=== PATIENT | male | born 1985 | race Caucasian/White ===

== ENCOUNTER → 2020-05-24 10:51 | Outpatient (BNVA) | payer BC, SELFPAY | PROVIDERS: Family Provider Nurse Practitioner; PCP Nurse Practitioner Family; Visit Provider Nurse Practitioner Family | DX: Z20.828 Contact with and (suspected) exposure to other viral communicable diseases (principal) | CPT/HCPCS: 87426 ==

== ENCOUNTER → 2020-06-28 17:16 | Outpatient (BNVA) | payer BC, SELFPAY | PROVIDERS: Family Provider Nurse Practitioner; PCP Nurse Practitioner Family; Visit Provider Nurse Practitioner Family | DX: R10.9 Unspecified abdominal pain (principal); I10 Essential (primary) hypertension; R10.31 Right lower quadrant pain; Z68.43 Body mass index [BMI] 50.0-59.9, adult; F17.211 Nicotine dependence, cigarettes, in remission | CPT/HCPCS: 80053; 80061; 84443; 85025 ==

== ENCOUNTER 2020-06-29 11:19 | Outpatient (CLI) | payer BC, SELFPAY ==
[2020-06-29] MEDS: iohexol 350 mg/mL 100 mL Btl IV (11:44)
--- NOTE | 2020-06-29 13:00 | CT_ITS ---
WS: [id number] CT ABDOMEN PELVIS TECHNIQUE: Contrast-enhanced CT of the abdomen and pelvis with coronal and sagittal reformatted image s. CLINICAL INFORMATION: R10.9 - Unspecified abdominal pain COMPARISON: None. DLP: 1392.[address] scans at [facility] use at least one of these dose optimization techniques: automat ed exposure control; mA and/or kV adjustment per patient size (includes targeted exams where dose is matched to clinical indication); or iterative reconstruction. FINDINGS: Mild diffuse fatty infiltration of the liver. Normal gallbladder. Normal spleen. Normal GE junction. Lung bases are well aerated. Normal pancreas. Adrenal glands are normal. Normal renal parenchymal enh ancement. No hydronephrosis. No abdominal or pelvic lymphadenopathy. Normal sigmoid colon. No evidence of high-grade small or large bowel obstruction. Tiny fat-containing umbilical hernia. No herniated bowel. No inguinal lymphadenopathy. CT/CT abdomen pelvis w con* [id number] IMPRESSION: 1. Diffuse fatty infiltration of the liver. 2. Normal renal parenchymal enhancement. No hydronephrosis in either kidney. 3. Tiny fat-containing umbilical hernia. No herniated bowel. 4. No abdominal or pelvic lymphadenopathy. 5. No other significant findings.
== END 2020-06-29 11:20 | disposition home or self-care (01) ==
LOC: RADWPI 11:26
PROVIDERS: Visit Provider Nurse Practitioner Family
DX: R10.9 Unspecified abdominal pain (principal); K42.9 Umbilical hernia without obstruction or gangrene; K76.0 Fatty (change of) liver, not elsewhere classified
CPT/HCPCS: 74177; Q9967

== ENCOUNTER 2020-12-21 18:05 | Emergency (ER) | payer BC, SELFPAY ==
[2020-12-21 18:11] VITALS: BP 167/92; PULSE 71; RESP 16; TEMP 36.5; O2SAT 97; BMI 52.7
--- NOTE | 2020-12-21 18:47 | ED_ITS ---
HPI - Skin/Abscess/Foreign Bdy General: Chief complaint: Skin/Abscess/Foreign Body Stated complaint: bite on lower L leg Time Seen by Provider: 12/21/20 18:47 History of Present Illness: HPI narrative: Patient has redness and swelling to the anterior knee. Patient has draining wound to the anterior knee. Patient reports its been there for about 4 to 5 days. Patient was started on Bactrim yesterday and has taken 2-3 doses. Patient is afebrile. Patient appears well. Patient appears in mild to moderate pain. Review of Systems General: Reports: 10 or more systems reviewed and unremarkable except in HPI and below Skin/Breast: Reports: other (abscess left knee) PFSH ED PFSH: Family History Mother Cancer Social History Quit status (tobacco): has quit using tobacco Second hand smoke exposure: No Alcohol intake: current Desire information about alcohol rehabilitation?: No Counseling given: No Last alcohol use date: 06/25/20 Lives independently: No Household members: spouse and children Housing: House Marital status: Number of children: 2 Highest education level completed: High School Graduate service: No Current occupational status: employed Pets and animals: No Sexually active: Yes Current gender identity: Male Special latrice needs: No Physical Exam Const: COMMON NORMALS: no acute distress and patient oriented x3 GENERAL APPEARANCE: cooperative HENMT: COMMON NORMALS: normocephalic and Normal external nose present HEAD & SCALP: normal to inspection and normocephalic NOSE: Normal external nose present MOUTH: Normal oral and palatal mucosa present Eye: GENERAL EYE: appearance normal, both eyes and all related structures Neck/C-Spine: COMMON NORMALS: full ROM Chest: COMMONS NORMALS: normal inspection of the chest Resp: COMMON NORMALS: normal respiratory effort EFFORT & INSPECTION: Yes able to speak in complete sentences Cardio: COMMON NORMALS: regular rate and regular rhythm RATE: regular rate RHYTHM: regular rhythm GI: COMMON NORMALS: non-tender Back/Pelvis: COMMON NORMALS: thoracic and lumbar spine normal to inspection Extremity: COMMON NORMALS: normal to inspection Neuro: COMMON NORMALS: patient oriented x3 and moves all extremities Psych: COMMON NORMALS: mental status grossly normal and cooperative Skin: NARRATIVE SKIN EXAM: Draining lesion to the left anterior knee. There is a area of redness surrounding the lesion that is approximately 10 cm. No distal swelling to the foot, pulses are intact distally. Cap refill is intact distally. Course Vital Signs: Vital signs: Vital Signs Temperature 97.7 F 12/21/20 18:11 Pulse Rate 71 12/21/20 18:11 Respiratory Rate 16 12/21/20 18:11 Blood Pressure 167/92 12/21/20 18:11 Pulse Oximetry 97 12/21/20 18:11 MDM - Skin/Abscess/Foreign Bdy MDM Narrative: Medical decision making narrative: Patient comes in today for complaints of redness surrounding a lesion to his left knee. Patient on exam has a draining wound to the left knee. There is area of redness surrounding the wound approximately 10 cm. Palpation of the wound does not have any fluctuance to it. Patient is able to bend and move the leg without much difficulty. Pulses are intact distally. No significant swelling is noted distally. Differential diagnosis includes abscess, bursitis, cellulitis. X-ray of the knee indicates no bony injury or significant swelling or joint effusion. Patient was given 1 g of Rocephin will continue with Bactrim daily and will add Augmentin twice daily to the patient's regimen. Patient was instructed to use warm moist packs to the wound and elevate the leg. Patient has only had 2 or 3 doses of the Bactrim. Recommended the patient follow-up with primary care or return to the ER for worsening symptoms. Discharge Plan Discharge Patient Disposition: Home Clinical Impression: Cellulitis Qualifiers: Site of cellulitis: extremity Site of cellulitis of extremity: lower extremity Laterality: left Qualified Code(s): L03.116 - Cellulitis of left lower limb Condition: Stable Prescriptions: New Augmentin 875-125 mg tablet 1 tab PO BID Qty: 14 RF: 0 Discontinued amoxicillin 500 mg capsule 500 mg PO BID 10 Days Qty: 20 RF: 0 No Action lisinopril 20 mg tablet 20 mg PO DAILY Qty: 90 RF: 0 sertraline [Zoloft] 50 mg tablet 50 mg PO DAILY Qty: 90 RF: 0 Discharge Orders: Discharge ED (Routine); Ordered 12/21/20 Ordered By: Liang Will Discharge Diet: Usual diet Discharge Activity: Increase activity as tolerated Patient Instructions: Cellulitis (ED), Opioid Safety Activity Restrictions/Additional Instructions: Continue taking Bactrim. Add Augmentin to regimen. Take both tablets twice a day until completion of prescription. Elevate leg, use warm moist pack to the wound. Avoid pushing and prodding on the wound. Follow-up with primary care in 3 days for recheck. Return to the ER for worsening symptoms such as high fever greater than 100.4, increasing redness and swelling, or new concerns. 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
--- NOTE | 2020-12-21 18:49 | XRR_ITS ---
PROCEDURE INFORMATION: Exam: XR Left Knee Exam date and time: 12/21/2020 6:49 PM Age: 35 years old Clinical indication: Patient HX: Left knee pain, abscess below patella TECHNIQUE: Imaging protocol: XR Left knee. Views: 3 views. COMPARISON: No relevant prior studies available. FINDINGS: Bones/joints: Normal. Soft tissues: Normal. XR/XR knee LT 3V* [id number] IMPRESSION: No acute findings.
[2020-12-21] MEDS: cefTRIAXone 1,000 MG in lidocaine 1% 2.1 ML 2.1 MG IM (20:35)
[2020-12-21 21:04] VITALS: BP 167/92; PULSE 71; RESP 16; O2SAT 97
== END 2020-12-21 20:20 | disposition home or self-care (01) ==
PROVIDERS: Emergency Provider Nurse Practitioner Family
DX: L03.116 Cellulitis of left lower limb (principal); Z87.891 Personal history of nicotine dependence
CPT/HCPCS: 73562; 96372; 99283; J0696

== ENCOUNTER → 2022-01-16 12:21 | Outpatient (BNVA) | payer BC, SELFPAY | PROVIDERS: Visit Provider Nurse Practitioner Family | DX: I10 Essential (primary) hypertension (principal); R73.9 Hyperglycemia, unspecified; K76.0 Fatty (change of) liver, not elsewhere classified | CPT/HCPCS: 80053; 80061; 83036 ==

== ENCOUNTER → 2022-11-26 12:06 | Outpatient (BNVA) | payer BC, SELFPAY | PROVIDERS: Visit Provider Nurse Practitioner Family | DX: R07.9 Chest pain, unspecified (principal); R73.9 Hyperglycemia, unspecified | CPT/HCPCS: 80053; 80061; 82607; 83036; 83735; 84443; 85025 ==

== ENCOUNTER → 2023-03-05 10:24 | Outpatient (BNVA) | payer BC, SELFPAY | PROVIDERS: PCP Nurse Practitioner Family; Visit Provider Nurse Practitioner Family | DX: I10 Essential (primary) hypertension (principal); R73.9 Hyperglycemia, unspecified | CPT/HCPCS: 80053; 80061; 82607; 83036; 84403; 84439; 84443; 85025 ==

== ENCOUNTER → 2023-04-02 09:23 | Outpatient (BNVA) | payer BC, SELFPAY | PROVIDERS: PCP Nurse Practitioner Family; Visit Provider Nurse Practitioner Family | DX: R79.89 Other specified abnormal findings of blood chemistry (principal) | CPT/HCPCS: 84403 ==

== ENCOUNTER → 2023-07-22 11:50 | Outpatient (BNVA) | payer BC, SELFPAY | PROVIDERS: PCP Nurse Practitioner Family; Visit Provider Nurse Practitioner Family | DX: R79.89 Other specified abnormal findings of blood chemistry (principal) | CPT/HCPCS: 82670; 84403; 85014; 85018 ==

== ENCOUNTER → 2023-09-06 08:53 | Outpatient (BNVA) | payer BC, SELFPAY | PROVIDERS: PCP Nurse Practitioner Family; Visit Provider Nurse Practitioner Family | DX: R73.9 Hyperglycemia, unspecified (principal); E66.01 Morbid (severe) obesity due to excess calories | CPT/HCPCS: 82670; 84403; 85014; 85018 ==

== ENCOUNTER → 2024-03-17 09:09 | Outpatient (BNVA) | payer BC, SELFPAY | PROVIDERS: PCP Nurse Practitioner Family; Visit Provider Nurse Practitioner Family | DX: E66.01 Morbid (severe) obesity due to excess calories (principal); E29.1 Testicular hypofunction | CPT/HCPCS: 80053; 80061; 82040; 82670; 83036; 84270; 84403; 84443; 85025 ==